=== PATIENT | female | born 1995 | race American Indian/Alaskan Native ===

== ENCOUNTER 2017-01-20 16:01 | Emergency (ER) | payer MEDICAID ==
[2017-01-20 16:14] VITALS: TEMP 98.1
[2017-01-20 17:40] LABS: RBC URINE 8 /hpf (0-3); TRANSITIONAL EPITHIAL < 1 /hpf (0-3); URINE BACTERIA OCC (<OCC); URINE BILIRUBIN NEGATIVE (NEGATIVE); URINE COLOR Yellow (YELLOW); URINE GLUCOSE (UA) NORMAL (Normal); URINE KETONE NEGATIVE (NEGATIVE); URINE LEUKOCYTE ESTERASE 1+ Leu/uL (Negative); URINE PROTEIN NEGATIVE (NEGATIVE); URINE UROBILINOGEN NORMAL mg/dL (0.2-1.0); WBC URINE 7 /hpf (0-5)
[2017-01-20 17:41] LABS: URINE BLOOD 1+ (NEGATIVE)
[2017-01-20 18:09] LABS: BASO % 0.6 % (0.0-2.0); EOS % 0.8 % (0.0-4.0); HEMATOCRIT 39.6 % (34.0-47.0); LYMPH # 2.2 K/uL (1.0-4.3); LYMPH % 42.4 % (20.0-40.0); MEAN CELL VOLUME 90.9 fL (81.0-99.0); MEAN CORPUSCULAR HEMOGLOBIN 30.4 pg (27.0-31.0); MEAN CORPUSCULAR HGB CONC 33.5 g/dL (33.0-37.0); MEAN PLATELET VOLUME 10.2 fL (7.2-11.7); MONO # 0.4 K/uL (0.0-0.8); MONO % 8.5 % (0.0-10.0); RED CELL DISTRIBUTION WIDTH 13.2 % (11.5-14.5); WHITE BLOOD COUNT 5.1 K/uL (4.8-10.8)
--- NOTE | 2017-01-20 18:13 | C.PDOC ---
Time Seen by Provider: 01/20/17 17:30 Chief Complaint (Nursing): Female Genitourinary Past Medical History Vital Signs: Last Vital Signs Temp 98.1 F 01/20/17 16:11 Pulse 89 01/20/17 16:11 Resp 20 01/20/17 16:11 BP 113/78 01/20/17 16:11 Pulse Ox 95 01/20/17 16:11 - Social History Hx Alcohol Use: No Hx Substance Use: No - Immunization History Hx Tetanus Toxoid Vaccination: No Hx Influenza Vaccination: No Hx Pneumococcal Vaccination: No ED Course And Treatment O2 Sat by Pulse Oximetry: 95
--- NOTE | 2017-01-20 18:14 | C.PDOC ---
History Of Present Illness 21 y/o female, , LMP 12/13, who reports recent (+) home test, presents to emergency department with c/o lower abdominal pressure and vaginal spotting for 3 days. Patient otherwise, denies fever, chills, nausea, vomiting, diarrhea, urinary symptoms. Time Seen by Provider: 01/20/17 17:30 Chief Complaint (Nursing): Female Genitourinary History Per: Patient History/Exam Limitations: no limitations Onset/Duration Of Symptoms: Days (3) Current Symptoms Are (Timing): Still Present Recent travel outside of the [place]: No Past Medical History Reviewed: Historical Data, Nursing Documentation, Vital Signs Vital Signs: Last Vital Signs Temp 98.1 F 01/20/17 16:11 Pulse 69 01/20/17 18:37 Resp 16 01/20/17 18:37 BP 115/78 01/20/17 18:37 Pulse Ox 95 01/20/17 19:38 - Medical History PMH: No Chronic Diseases Family History: States: Unknown Family Hx - Social History Hx Alcohol Use: No Hx Substance Use: No - Immunization History Hx Tetanus Toxoid Vaccination: No Hx Influenza Vaccination: No Hx Pneumococcal Vaccination: No Review Of Systems Except As Marked, All Systems Reviewed And Found Negative. Constitutional: Negative for: Fever, Chills Gastrointestinal: Positive for: Abdominal Pain. Negative for: Vomiting, Diarrhea Genitourinary: Positive for: Vaginal Bleeding (spotting) Skin: Negative for: Rash Neurological: Negative for: Dizziness Physical Exam - Physical Exam Appears: Non-toxic, No Acute Distress Skin: Normal Color, Warm, Dry Head: Atraumatic, Normacephalic Oral Mucosa: Moist Chest: Symmetrical Cardiovascular: Rhythm Regular Respiratory: Normal Breath Sounds, No Rales, No Rhonchi, No Wheezing Gastrointestinal/Abdominal: Soft, Tenderness (mild, suprapubic), No Distention, No Guarding, No Rebound Back: Normal Inspection Extremity: Normal ROM, Capillary Refill (< 2 sec. ) Neurological/Psych: Oriented x3, Normal Speech, Normal Cognition ED Course And Treatment - Laboratory Results Result Diagrams: 01/20/17 17:58 01/20/17 17:58 O2 Sat by Pulse Oximetry: 95 (RA) Pulse Ox Interpretation: Normal Medical Decision Making Medical Decision Making: Plan: * Labs * UA, Upreg * Ultrasound * Reassess Prior Visits: Notes and results from previous visits were reviewed Progress Notes: pt comfortable. bhcg 111, no iup seen;- unclear if early preg, ectopic or miscarriage. pt to return to ER or [facility] in 48 hours for repeat bhcg. Disposition Counseled Patient/Family Regarding: Studies Performed, Diagnosis, Need For Followup, Rx Given - Disposition Disposition: HOME/ ROUTINE Disposition Time: 19:35 Condition: STABLE Additional Instructions: Take it easy for next few days. Return to ER for any worse symptoms. Follow up in 48 hours in ER or [facility] for repeat bhcg. (blood hormone test). Pelvic rest- nothing in vagina. Stay well hydrated. Prescriptions: Nitrofurantoin Macrocrystals [Macrobid] 100 mg PO BID #14 cap Instructions: Threatened Miscarriage (ED) Forms: General Discharge Instructions - Clinical Impression Clinical Impression: Threatened - PA / JOURNALISM INTERN / Resident Statement MD/DO has reviewed & agrees with the documentation as recorded. - Scribe Statement The provider has reviewed the documentation as recorded by the Irishibmayuri Scott All medical record entries made by the [place] were at my direction and personally dictated by me. I have reviewed the chart and agree that the record accurately reflects my personal performance of the history, physical exam, medical decision making, and the department course for this patient. I have also personally directed, reviewed, and agree with the discharge instructions and disposition.
[2017-01-20 18:15] LABS: CHLORIDE 98 mmol/L (98-107)
[2017-01-20 18:16] LABS: POTASSIUM 3.5 mmol/L (3.6-5.2); SODIUM 137 mmol/L (132-148)
[2017-01-20 18:18] LABS: ALB/GLOB RATIO 1.5 (1.0-2.1); ALKALINE PHOSPHATASE 103 U/L (38-126); AST/SGOT 21 U/L (14-36); BILIRUBIN,TOTAL 0.5 mg/dL (0.2-1.3); CARBON DIOXIDE 25 mmol/L (22-30); GFR AFRICAN-AMERICAN > 60; TOTAL PROTEIN 6.8 g/dL (6.3-8.3)
[2017-01-20 18:19] LABS: ALT/SGPT 21 U/L (9-52); BLOOD UREA NITROGEN 10 mg/dL (7-17); CALCIUM 8.5 mg/dl (8.6-10.4); GLUCOSE,RANDOM 78 mg/dL (65-105)
--- NOTE | 2017-01-20 18:52 | US ---
HISTORY: preg with bleeding COMPARISON: None available. TECHNIQUE: Transabdominal and transvaginal FINDINGS: UTERUS: Measures 8.6 x 4.1 x 5.2 cm. Normal in size and appearance. No fibroid or other mass lesion seen. ENDOMETRIUM: Measures 11 mm in diameter. No intrauterine gestational sac identified. CERVIX: No cervical abnormality identified. RIGHT OVARY: Measures 2.4 x 1.1 x 2.5 cm. No solid mass. Normal flow. LEFT OVARY: Measures 2.5 x 2.3 x 2.8 cm. No solid mass. Normal flow. FREE FLUID: No significant free fluid noted. OTHER FINDINGS: None. IMPRESSION: No intrauterine gestation identified. Can't exclude ectopic in the absence of an intrauterine gestation. Please correlate with serial beta HCG. Otherwise unremarkable.
[2017-01-20 20:03] VITALS: BP 111/75; PULSE 72; RESP 18; O2SAT 100
== END 2017-01-20 20:03 | disposition home or self-care (01) ==
LOC: C.ER 16:01
DX: O20.0 Threatened abortion (principal); Z3A.00 Weeks of gestation of pregnancy not specified